=== PATIENT | female | born 1975 | race Caucasian/White ===

== ENCOUNTER 2024-01-21 22:09 | Observation (INO) ==
[2024-01-21 22:30] LABS: BILIRUBIN,URINE NEGATIVE (NEGATIVE); BLOOD/HEMOGLOBIN,URINE NEGATIVE (NEGATIVE); GLUCOSE, URINE NEGATIVE (NEGATIVE); KETONES,URINE 2+ (NEGATIVE); LEUKOCYTE ESTERASE ,URINE NEGATIVE (NEGATIVE); NITRITES,URINE NEGATIVE (NEGATIVE); PROTEIN,URINE NEGATIVE (NEGATIVE); UROBILINOGEN,URINE NORMAL (NORMAL)
[2024-01-21 22:33] LABS: APPEARANCE,URINE CLEAR (CLEAR); COLOR,URINE STRAW (YELLOW)
--- NOTE | 2024-01-21 22:34 | ED.ABDFE ---
HPI Time Seen Time Seen by Provider: 01/21/24 22:32 PCP Primary Care Physician: Carlito Posadas Complaint Doctors Chief Complaint Comments: Patient states that for 1 week she has been having pain in her Rlq that is aching. Patient presents to the ED today because the pain became severe over the past 2 days and she could not eat as she normally does because of the pain. Patient states that she passes flatus and has soft stools.Patient denies:fever,n,v,back pain,hematemesis,hematochezia. Chief Complaint:: pt amb to triage with c/o RLQ pain that started 1 week ago and becoming severe the last 2 days, she reports she has an appt scheduled with her PCP tomorrow, pt denies any urinary c/o and reports she having regular BMs, pt with NAD noted at triage Self Treatment fo Chief Complaint: none COVID-19 Coronavirus risk:travel/contact w/high risk person: No Has patient experienced Coronavirus symptoms: No Source History Provided: Patient and Family Member Mode of arrival Mode of Arrival: Ambulatory Timing Onset of Chief Complaint: 01/14/24 PMH PMH Past Medical History: Yes Past Medical History: Anxiety, Depression and Hypothyroidism Past Medical History Comment: Carolyne'segundo Past Surgical History: Yes Surgical History: FINANCE MGR Surgery, Hysterectomy, Ortho Surgery, Thyroidectomy and Other Past Surgical History Comment: tubal, 1/2 thyroid removed Family History History of Family Medical Conditions: Yes Family Medical History: Cancer, [place], Coronary Artery Disease and Hypertension Social History Does patient currently use any type of tobacco product: Yes Have you used tobacco products in the last 12 months: Yes Type of Tobacco Use: Vape Does any household member use tobacco: Yes Alcohol Use: Occasionally Do you use any recreational Drugs:: No Lives With: Family Lives Where: Home Travel Risk Coronavirus risk:travel/contact w/high risk person: No Has patient experienced Coronavirus symptoms: No Infectious screening Have you traveled outside the country in the last 6 months?: No Isolation: Standard ROS Review of Systems Constitutional: No Symptoms Reported Eyes: No Symptoms Reported ENTM: No Symptoms Reported Respiratoy: No Symptoms Reported Cardiovascular: No Symptoms Reported Gastrointestinal/Abdominal: Abdominal Pain (RLQ) and Food Intolerance (x 2 days) Genitourinary: No Symptoms Reported Neurological: No Symptoms Reported Musculoskeletal: No Symptoms Reported Integumentary: No Symptoms Reported Hematologic/Lymphatic: No Symptoms Reported Endocrine: No Symptoms Reported Psychiatric: No Symptoms Reported All Other Systems: Reviewed and Negative PE Vital Signs Vitals: Vital Signs Temperature 97.7 F Pulse Rate [Left] 86 Pulse Rate 94 Pulse Rate 86 Pulse Rate 90 Pulse Rate 85 Pulse Rate 88 Pulse Rate 100 Respiratory Rate 20 Respiratory Rate 18 Respiratory Rate 16 Respiratory Rate 18 Respiratory Rate 20 Blood Pressure [Left Arm] 134/76 Blood Pressure 162/99 Blood Pressure 138/94 Blood Pressure 135/92 O2 Sat by Pulse Oximetry 98 O2 Sat by Pulse Oximetry 99 O2 Sat by Pulse Oximetry 99 O2 Sat by Pulse Oximetry 98 O2 Sat by Pulse Oximetry 97 O2 Sat by Pulse Oximetry 98 O2 Sat by Pulse Oximetry 97 General Limitations: No Limitations and Language Barrier General Appearance: Alert and In No Apparent Distress Head Head Exam: Normal Inspection Eyes Eye exam: Normal Appearance ENT ENT Exam: Normal Exam Neck Neck Exam: Normal Inspection Chest Chest Inspection: Normal Inspection Respiratory Respiratory Exam: Normal Lung Sounds Bilat Respiratory Exam: Bilateral: Clear to Auscultation Cardiovascular Cardiovascular Exam: Regular Rate and Normal Rhythm Abdominal Exam Abdominal Exam: Tenderness (RLQ), Guarding (RLQ), Rebound (RLQ) and Hypoactive Bowel Sounds; negative Distention Rectal Rectal Exam: Deferred Back Back Exam: Normal Inspection Extremeties Extremities Exam: Normal Inspection Neurologic Neurological Exam: Alert and Oriented X3 Psychiatric Psychiatric Exam: Normal Affect and Normal Mood Skin Skin Exam: Warm, Dry and Intact MDM Differential Diagnosis Differential Diagnosis- Considerations may include:: Appendicitis, Bowel Obstruction, Diverticular disease and Ischemic Bowel Other differential diagnosis: Bowel perforation COURSE Treatment Treatment: Patient was brought to an exam room and iv access was initiated.Labs were drawn and patient was given Morphine 2mg iv and zofran 4mg iv, pepcid 20mg iv. Labs and tests were reviewed: U/a pos ketones,CMP stable,CRP 7.80,Latic acid 0.6,wbc 6.7. The abd/pelvis CT with iv contrast revealed a 7mm appendix with small amt of fluid in the lumen and periappendiceal stranding c/w an early appendicitis.Patient was given NS 1 liter bolus and she requested medication for pain. Patient was given dialudid 1mg iv. Discussed case with Dr Willams (General Surgeon) mortgage loan computation clerk. He has accepted Patient to his service and would like her to be NPO,given iv antibiotics ,given IVF. ROR Labs Reviewed Laboratory Results Reviewed?: Yes 01/21/24 23:05 01/21/24 23:05 Laboratory: WBC 6.7 X10^3/uL (3.6-10.0) 01/21/24 23:05 RBC 4.47 X10^6/uL (3.5-5.4) 01/21/24 23:05 Hgb 13.8 g/dL (12.0-16.0) 01/21/24 23:05 Hct 40.3 % (36.0-47.0) 01/21/24 23:05 MCV 90.0 fL (80.0-100.0) 01/21/24 23:05 MCH 30.8 pg (27.0-34.0) 01/21/24 23:05 MCHC 34.2 g/dL (33.0-35.0) 01/21/24 23:05 RDW 13.2 % (11.6-16.5) 01/21/24 23:05 Plt Count 296 X10^3/uL (150.0-450.0) 01/21/24 23:05 MPV 8.7 fL (7.4-11.0) 01/21/24 23:05 Neut % (Auto) 63.8 % (42.0-75.0) 01/21/24 23:05 Lymph % (Auto) 26.3 % (21.0-51.0) 01/21/24 23:05 [place] % (Auto) 7.3 % (0.0-13.0) 01/21/24 23:05 Eos % (Auto) 2.0 % (0.9-2.9) 01/21/24 23:05 Baso % (Auto) 0.6 % (0.2-1.0) 01/21/24 23:05 Neut # (Auto) 4.3 x10^3/uL (2.2-4.8) 01/21/24 23:05 Lymph # (Auto) 1.8 X10^3/uL (1.3-2.9) 01/21/24 23:05 [place] # (Auto) 0.5 x10^3/uL (0.3-0.8) 01/21/24 23:05 Eos # (Auto) 0.1 x10^3/uL (0.0-0.2) 01/21/24 23:05 Baso # (Auto) 0.0 X10^3/uL (0.0-0.1) 01/21/24 23:05 Absolute Nucleated RBC 0.1 /100WBC 01/21/24 23:05 Sodium 142 mmol/L (136-145) 01/21/24 23:05 Corrected Sodium TNP 01/21/24 23:05 Potassium 3.8 mmol/L (3.5-5.1) 01/21/24 23:05 Chloride 104 mmol/L (98-107) 01/21/24 23:05 Carbon Dioxide 27.0 mmol/L (21-32) 01/21/24 23:05 BUN 12 mg/dL (7-18) 01/21/24 23:05 Creatinine 0.79 mg/dL (0.55-1.02) 01/21/24 23:05 Est GFR (MDRD) Af Amer > 60 (>60) 01/21/24 23:05 Est GFR (MDRD) Non-Af > 60 (>60) 01/21/24 23:05 Glucose 75 mg/dL (65-99) 01/21/24 23:05 Lactic Acid 0.6 mmol/L (0.4-2.0) 01/21/24 23:05 Calcium 9.1 mg/dL (8.5-10.1) 01/21/24 23:05 Corrected Calcium TNP 01/21/24 23:05 Total Bilirubin 0.40 mg/dL (0.2-1.0) 01/21/24 23:05 AST 16 Units/L (15-37) 01/21/24 23:05 ALT 19 Units/L (12-78) 01/21/24 23:05 Alkaline Phosphatase 123 Units/L (46-116) H 01/21/24 23:05 C-Reactive Protein 7.80 mg/L (0-3.0) H 01/21/24 23:05 Total Protein 7.5 g/dL (6.4-8.2) 01/21/24 23:05 Albumin 3.7 g/dL (3.4-5.0) 01/21/24 23:05 Globulin 3.8 g/dL (2.5-4.5) 01/21/24 23:05 Albumin/Globulin Ratio 1.0 Ratio (1.1-2.1) L 01/21/24 23:05 Amylase 40 Units/L (25-115) 01/21/24 23:05 Lipase 28 Units/L (16-77) 01/21/24 23:05 Specimen Type Clean catch urine 01/21/24 22:23 Urine Color Straw (YELLOW) 01/21/24 22:23 Urine Appearance Clear (CLEAR) 01/21/24 22:23 Urine pH 6.0 (5.0 - 8.0) 01/21/24 22:23 Ur Specific [place] 1.010 (1.000-1.030) 01/21/24 22:23 Urine Protein Negative (NEGATIVE) 01/21/24 22:23 Urine Glucose (UA) Negative (NEGATIVE) 01/21/24 22:23 Urine Ketones 2+ (NEGATIVE) 01/21/24 22:23 Urine Blood Negative (NEGATIVE) 01/21/24 22:23 Urine Nitrite Negative (NEGATIVE) 01/21/24 22:23 Urine Bilirubin Negative (NEGATIVE) 01/21/24 22:23 Urine Urobilinogen Normal (NORMAL) 01/21/24 22:23 Ur Leukocyte Esterase Negative (NEGATIVE) 01/21/24 22:23 XRAY XRAY Interpreted by: Radiologist X-ray Results: PROCEDURE: CT Abdomen and Pelvis with IV Contrast. HISTORY: Right lower quadrant pain. TECHNIQUE: Axial images were performed through the abdomen and pelvis with the administration of IV contrast with multiplanar reformations . Oral contrast was notadministered . Dose reduction techniques including Automated Exposure Control (AEC) and adjustment of mA and kV were utilized .. COMPARISON: None. TECHNICAL QUALITY: Satisfactory. FINDINGS: Clear lung bases. Liver, spleen, adrenals, and pancreas show no abnormality. Kidneys show no masses or obstruction with normal enhancement. Normal biliary tract. No ascites or pneumoperitoneum. Normal aorta. No lymphadenopathy. No bowel obstruction or inflammation. Mild colonic diverticulosis. 7 mm diameter appendix with small amount of fluid in the lumen and minimal periappendiceal stranding equivocal for early appendicitis. Pelvis shows no masses or free fluid with previous hysterectomy. Normal urinary bladder. No acute bony abnormality. IMPRESSION: 1. Findings equivocal for early appendicitis. 2. Mild colonic diverticulosis. THIS IS AN ELECTRONICALLY VERIFIED FINAL REPORT 01/22/2024 12:19 AM - Electronically signed by Frank Bhatt MD Opioid Opioid Risk Tool Age (Darryl box if 16-45): No Total: 0 Total Score Risk Category: Low Risk Copyright: Damon RASMUSSEN predicting aberrant behaviors Discharge Plan Diagnosis Discharge Problem: Acute appendicitis Discharge Plan Patient Disposition: ADMITTED INPATIENT Condition: Stable Orders to Discharge Patient Discharge Orders: Transfer (Routine); Ordered 01/22/24 Ordered By: Sylvie Montes De Oca
[2024-01-21] MEDS ORDERED: ZOFRAN INJ 4 MG VIAL ONE (22:51)
[2024-01-21] MEDS: MORPHINE SULFATE INJ 2 MG INJ IVP ONE (22:54)
[2024-01-21] MEDS: NS 1,000 ML IV 1,000 ML IV ONE (22:54)
[2024-01-21] MEDS: PEPCID 20 MG VIAL IVP ONE (22:55)
[2024-01-21] MEDS: ZOFRAN INJ 4 MG VIAL IVP ONE (22:55)
[2024-01-21 23:17] LABS: HEMOGLOBIN 13.8 g/dL (12.0-16.0); RED CELL DISTRIBUTION WIDTH 13.2 % (11.6-16.5)
[2024-01-21 23:21] LABS: BASOPHILS % (AUTO) 0.6 % (0.2-1.0); EOSINOPHILS # (AUTO) 0.1 x10^3/uL (0.0-0.2); HEMATOCRIT 40.3 % (36.0-47.0); LYMPHOCYTES # (AUTO) 1.8 X10^3/uL (1.3-2.9); LYMPHOCYTES % (AUTO) 26.3 % (21.0-51.0); MEAN CORPUSCULAR HEMOGLOBIN 30.8 pg (27.0-34.0); MEAN CORPUSCULAR HGB CONC 34.2 g/dL (33.0-35.0); MEAN PLATELET VOLUME 8.7 fL (7.4-11.0); MONOCYTES # (AUTO) 0.5 x10^3/uL (0.3-0.8); MONOCYTES % (AUTO) 7.3 % (0.0-13.0); NEUTROPHILS # (AUTO) 4.3 x10^3/uL (2.2-4.8); NEUTROPHILS % (AUTO) 63.8 % (42.0-75.0); PLATELET COUNT 296 X10^3/uL (150.0-450.0); RED BLOOD COUNT 4.47 X10^6/uL (3.5-5.4); WHITE BLOOD COUNT 6.7 X10^3/uL (3.6-10.0)
[2024-01-21 23:26] LABS: ALANINE AMINOTRANSFERASE 19 Units/L (12-78); ALBUMIN 3.7 g/dL (3.4-5.0); ALKALINE PHOSPHATASE 123 Units/L (46-116); AMYLASE 40 Units/L (25-115); ASPARTATE AMINO TRANSFERASE 16 Units/L (15-37); BLOOD UREA NITROGEN 12 mg/dL (7-18); CALCIUM 9.1 mg/dL (8.5-10.1); CHLORIDE 104 mmol/L (98-107); CREATININE 0.79 mg/dL (0.55-1.02); GLUCOSE 75 mg/dL (65-99); LIPASE 28 Units/L (16-77); POTASSIUM 3.8 mmol/L (3.5-5.1); SODIUM 142 mmol/L (136-145); TOTAL PROTEIN 7.5 g/dL (6.4-8.2); eGFR NON BLACK RACES > 60 (>60)
[2024-01-21] MEDS: TORADOL 30 MG VIAL IVP ONE (23:43)
[2024-01-22] MEDS: DILAUDID INJ IVP ONE ×2 (00:22→01:50)
--- NOTE | 2024-01-22 00:23 | CT ---
PROCEDURE: CT Abdomen and Pelvis with IV Contrast.HISTORY: Right lower quadrant pain.TECHNIQUE: Axial images were performed through the abdomen and pelvis with the administration of IV contrast with multiplanar reformations . Oral contrast was notadministered . Dose reduction techniques including Automated Exposure Control (AEC) and adjustment of mA and kV were utilized ..COMPARISON: None.TECHNICAL QUALITY: Satisfactory.FINDINGS:Clear lung bases.Liver, spleen, adrenals, and pancreas show no abnormality.Kidneys show no masses or obstruction with normal enhancement.Normal biliary tract.No ascites or pneumoperitoneum.Normal aorta.No lymphadenopathy.No bowel obstruction or inflammation. Mild colonic diverticulosis. 7 mm diameter appendix with small amount of fluid in the lumen and minimal periappendiceal stranding equivocal for early appendicitis.Pelvis shows no masses or free fluid with previous hysterectomy. Normal urinary bladder.No acute bony abnormality.IMPRESSION:1. Findings equivocal for early appendicitis.2. Mild colonic diverticulosis.THIS IS AN ELECTRONICALLY VERIFIED FINAL REPORT01/22/2024 12:19 AM - Electronically signed by Frank Bhatt MD
[2024-01-22] MEDS: MAXIPIME VIAL 2 GRAMS 2 G in NS 100 ML IV 100 ML IV SCH (01:18)
[2024-01-22] MEDS: NS 1,000 ML IV 1,000 ML IV SCH (01:20)
[2024-01-22] MEDS: ZOFRAN INJ 4 MG VIAL IVP PRN (02:56)
[2024-01-22 03:16] VITALS: BMI 36.3
[2024-01-22] MEDS: FLAGYL IV PREMIX 500 MG BAG 500 MG/100 ML BAG IV SCH ×2 (03:35→22:55)
[2024-01-22] MEDS: ZOFRAN INJ 4 MG VIAL IVP ONE (07:39)
[2024-01-22] MEDS: NS 100 ML IV 100 ML ONE ×3 (07:45→08:29)
[2024-01-22] MEDS: MORPHINE SULFATE INJ 2 MG INJ ONE (07:46)
[2024-01-22] MEDS: NS 1,000 ML IV 1,000 ML ONE ×2 (07:46→07:49)
[2024-01-22] MEDS: TORADOL 30 MG VIAL ONE ×2 (07:47→09:31)
[2024-01-22] MEDS: PEPCID 20 MG VIAL ONE ×2 (07:47→08:46)
[2024-01-22] MEDS: OMNIPAQUE 350 mg/mL 100 mL BTL 100 ML ONE (07:47)
[2024-01-22] MEDS: MAXIPIME VIAL 1 GRAM ONE (07:48)
[2024-01-22] MEDS: DILAUDID INJ ONE ×2 (07:48→07:49)
[2024-01-22] MEDS: LR 1,000 ML IV 1,000 ML IV SCH (08:16)
[2024-01-22] MEDS: LR 1,000 ML IV 1,000 ML IV ONE (08:29)
[2024-01-22] MEDS: VERSED ONE (08:45)
[2024-01-22] MEDS: ANCEF VIAL 1 GRAM ONE (08:45)
[2024-01-22] MEDS: FENTANYL VIAL INJ 250 mcg ONE (08:45)
[2024-01-22] MEDS: BRIDION ONE (08:46)
[2024-01-22] MEDS: ZEMURON 100 MG VIAL ONE (08:46)
[2024-01-22] MEDS: REGLAN INJ 10 MG VIAL ONE (08:46)
[2024-01-22] MEDS: DIPRIVAN VIAL 20 ML ONE (08:46)
[2024-01-22] MEDS ORDERED: SUPRANE ONE (08:48)
[2024-01-22] MEDS: DECADRON INJ ONE (09:07)
[2024-01-22] MEDS: BACTROBAN TOPICAL OINT ONE (09:32)
[2024-01-22] MEDS ORDERED: BENADRYL INJ 50 MG VIAL IVP PRN (09:52)
[2024-01-22] MEDS ORDERED: BARHEMSYS INJ IVP PRN (09:52)
[2024-01-22] MEDS ORDERED: DILAUDID INJ IVP PRN (09:52)
[2024-01-22] MEDS ORDERED: REGLAN INJ 10 MG VIAL IVP PRN (09:52)
[2024-01-22] MEDS ORDERED: ZOFRAN INJ 4 MG VIAL IVP PRN (09:52)
[2024-01-22] MEDS: TORADOL 15 MG VIAL IVP PRN (12:35)
[2024-01-22] MEDS ORDERED: NS IRRIGATION* 1,000 ML ONE (14:19)
[2024-01-22] MEDS: NORCO 5/325 MG TAB PO PRN (14:25)
[2024-01-23 07:20] LABS: BASOPHILS % (AUTO) 0.5 % (0.2-1.0); EOSINOPHILS % (AUTO) 0.3 % (0.9-2.9); HEMATOCRIT 33.3 % (36.0-47.0); HEMOGLOBIN 11.5 g/dL (12.0-16.0); LYMPHOCYTES # (AUTO) 1.8 X10^3/uL (1.3-2.9); LYMPHOCYTES % (AUTO) 24.7 % (21.0-51.0); MEAN CORPUSCULAR HEMOGLOBIN 31.4 pg (27.0-34.0); MEAN CORPUSCULAR HGB CONC 34.4 g/dL (33.0-35.0); MEAN CORPUSCULAR VOLUME 91.1 fL (80.0-100.0); MEAN PLATELET VOLUME 9.1 fL (7.4-11.0); MONOCYTES # (AUTO) 0.5 x10^3/uL (0.3-0.8); MONOCYTES % (AUTO) 6.4 % (0.0-13.0); NEUTROPHILS # (AUTO) 5.1 x10^3/uL (2.2-4.8); NEUTROPHILS % (AUTO) 68.1 % (42.0-75.0); PLATELET COUNT 249 X10^3/uL (150.0-450.0); RED BLOOD COUNT 3.65 X10^6/uL (3.5-5.4); WHITE BLOOD COUNT 7.5 X10^3/uL (3.6-10.0)
[2024-01-23 07:33] LABS: ALANINE AMINOTRANSFERASE 13 Units/L (12-78); ALBUMIN 2.9 g/dL (3.4-5.0); ALKALINE PHOSPHATASE 97 Units/L (46-116); ASPARTATE AMINO TRANSFERASE 13 Units/L (15-37); BLOOD UREA NITROGEN 8 mg/dL (7-18); CALCIUM 8.3 mg/dL (8.5-10.1); CARBON DIOXIDE 25.9 mmol/L (21-32); CHLORIDE 108 mmol/L (98-107); COR CA(FOR HYPOALB) 9.2 mg/dL (8.5-10.1); CREATININE 0.63 mg/dL (0.55-1.02); GLUCOSE 78 mg/dL (65-99); POTASSIUM 3.9 mmol/L (3.5-5.1); SODIUM 143 mmol/L (136-145); eGFR NON BLACK RACES > 60 (>60)
[2024-01-23] MEDS: DILAUDID INJ IVP PRN (08:21)
[2024-01-23 08:37] VITALS: TEMP 98.1; O2SAT 97
[2024-01-23] MEDS ORDERED: CONSULT PHARMACY - POTASSIUM & MAGNESIUM XX SCH (09:00)
[2024-01-23] MEDS ORDERED: LR 1,000 ML IV 1,000 ML with MAGNESIUM SULFATE 50% INJ VIAL 1 G IV SCH (09:00)
--- NOTE | 2024-01-23 10:01 | DR.PROGNOT ---
HOSPITAL PROGRESS NOTE Progress Note for Day of: Progress Note Date: 01/23/24 Chief Complaint Chief Complaint: Status post laparoscopic appendectomy day 1. Complain of moderate abdominal pain right lower quadrant. Tolerating oral intake, no nausea or vomiting, no bowel movement yet. CBC and CMP are normal. Patient is afebrile. Past Medical Family Social History Allergies: Allergies amoxicillin [From Augmentin] Allergy (Verified 01/21/24 22:31) clavulanic acid [From Augmentin] Allergy (Verified 01/21/24 22:31) Review Of Systems ROS: No change since H&P Vital Signs Vital Signs: Vital Signs Temperature 98.1 F Temperature 97.8 F Pulse Rate [Left] 79 Pulse Rate [Left] 82 Respiratory Rate 18 Respiratory Rate 20 Respiratory Rate 20 Respiratory Rate 18 Respiratory Rate 20 Respiratory Rate 20 Respiratory Rate 19 Respiratory Rate 20 Blood Pressure [Left Arm] 129/86 Blood Pressure [Left Arm] 127/78 O2 Sat by Pulse Oximetry 97 O2 Sat by Pulse Oximetry 96 Physical Exam Oriented: Normal Eyes: Normal Ear: Normal Nose: Normal Throat: Normal Respiratory: Normal Cardiovascular: Normal GI:Auscultation: Normal GI: Tenderness: Other (Soft and flat abdomen with moderate right lower quadrant tenderness, bowel sounds present) Speech Pattern: Clear and Appropriate Laboratory and Diagnostics 01/23/24 05:22 01/23/24 05:22 Labs: Laboratory WBC 7.5 X10^3/uL (3.6-10.0) 01/23/24 05:22 RBC 3.65 X10^6/uL (3.5-5.4) 01/23/24 05:22 Hgb 11.5 g/dL (12.0-16.0) L D 01/23/24 05:22 Hct 33.3 % (36.0-47.0) L 01/23/24 05:22 MCV 91.1 fL (80.0-100.0) 01/23/24 05:22 MCH 31.4 pg (27.0-34.0) 01/23/24 05:22 MCHC 34.4 g/dL (33.0-35.0) 01/23/24 05:22 RDW 13.0 % (11.6-16.5) 01/23/24 05:22 Plt Count 249 X10^3/uL (150.0-450.0) 01/23/24 05:22 MPV 9.1 fL (7.4-11.0) 01/23/24 05:22 Neut % (Auto) 68.1 % (42.0-75.0) 01/23/24 05:22 Lymph % (Auto) 24.7 % (21.0-51.0) 01/23/24 05:22 [place] % (Auto) 6.4 % (0.0-13.0) 01/23/24 05:22 Eos % (Auto) 0.3 % (0.9-2.9) L 01/23/24 05:22 Baso % (Auto) 0.5 % (0.2-1.0) 01/23/24 05:22 Neut # (Auto) 5.1 x10^3/uL (2.2-4.8) H 01/23/24 05:22 Lymph # (Auto) 1.8 X10^3/uL (1.3-2.9) 01/23/24 05:22 [place] # (Auto) 0.5 x10^3/uL (0.3-0.8) 01/23/24 05:22 Eos # (Auto) 0.0 x10^3/uL (0.0-0.2) 01/23/24 05:22 Baso # (Auto) 0.0 X10^3/uL (0.0-0.1) 01/23/24 05:22 Absolute Nucleated RBC 0.0 /100WBC 01/23/24 05:22 Sodium 143 mmol/L (136-145) 01/23/24 05:22 Corrected Sodium TNP 01/23/24 05:22 Potassium 3.9 mmol/L (3.5-5.1) 01/23/24 05:22 Chloride 108 mmol/L (98-107) H 01/23/24 05:22 Carbon Dioxide 25.9 mmol/L (21-32) 01/23/24 05:22 BUN 8 mg/dL (7-18) 01/23/24 05:22 Creatinine 0.63 mg/dL (0.55-1.02) 01/23/24 05:22 Est GFR (MDRD) Af Amer > 60 (>60) 01/23/24 05:22 Est GFR (MDRD) Non-Af > 60 (>60) 01/23/24 05:22 Glucose 78 mg/dL (65-99) 01/23/24 05:22 Lactic Acid 0.6 mmol/L (0.4-2.0) 01/21/24 23:05 Calcium 8.3 mg/dL (8.5-10.1) L 01/23/24 05:22 Corrected Calcium 9.2 mg/dL (8.5-10.1) 01/23/24 05:22 Magnesium 1.8 mg/dL (2.0-2.9) L 01/23/24 05:22 Total Bilirubin 0.40 mg/dL (0.2-1.0) 01/23/24 05:22 AST 13 Units/L (15-37) L 01/23/24 05:22 ALT 13 Units/L (12-78) 01/23/24 05:22 Alkaline Phosphatase 97 Units/L (46-116) 01/23/24 05:22 C-Reactive Protein 7.80 mg/L (0-3.0) H 01/21/24 23:05 Total Protein 6.0 g/dL (6.4-8.2) L 01/23/24 05:22 Albumin 2.9 g/dL (3.4-5.0) L 01/23/24 05:22 Globulin 3.1 g/dL (2.5-4.5) 01/23/24 05:22 Albumin/Globulin Ratio 0.9 Ratio (1.1-2.1) L 01/23/24 05:22 Amylase 40 Units/L (25-115) 01/21/24 23:05 Lipase 28 Units/L (16-77) 01/21/24 23:05 Specimen Type Clean catch urine 01/21/24 22:23 Urine Color Straw (YELLOW) 01/21/24 22:23 Urine Appearance Clear (CLEAR) 01/21/24 22:23 Urine pH 6.0 (5.0 - 8.0) 01/21/24 22:23 Ur Specific [place] 1.010 (1.000-1.030) 01/21/24 22:23 Urine Protein Negative (NEGATIVE) 01/21/24 22:23 Urine Glucose (UA) Negative (NEGATIVE) 01/21/24 22:23 Urine Ketones 2+ (NEGATIVE) 01/21/24 22:23 Urine Blood Negative (NEGATIVE) 01/21/24 22:23 Urine Nitrite Negative (NEGATIVE) 01/21/24 22:23 Urine Bilirubin Negative (NEGATIVE) 01/21/24 22:23 Urine Urobilinogen Normal (NORMAL) 01/21/24 22:23 Ur Leukocyte Esterase Negative (NEGATIVE) 01/21/24 22:23 Assessment and Plan 1: Postoperative laparoscopic appendectomy for acute appendicitis. Patient could be discharged on Cipro 500 mg twice a day for 1 week. [place] 5 every 4 hours as needed. Regular diet small meals. Follow-up in 10 days. Patient is instructed to rest at home until seen in the office in 10 days. Problem Patient Problems: Patient Problems Acute appendicitis (Acute) K35.80
[2024-01-23 12:05] VITALS: BP 122/83; PULSE 87; RESP 19
== END 2024-01-23 12:35 | disposition home or self-care (01) ==
LOC: ER 22:09 → MED/SURG 22:09
PROVIDERS: ADMIT Surgery; ATTEND Obstetrics & Gynecology Obstetrics
PROC: APPYLAP (ICD-10-PCS; 2024-01-22 09:00)
DX: R10.31 Right lower quadrant pain; K35.30 Acute appendicitis with localized peritonitis, without perforation or gangrene; R79.82 Elevated C-reactive protein (CRP); K57.30 Diverticulosis of large intestine without perforation or abscess without bleeding; E03.8 Other specified hypothyroidism; E83.42 Hypomagnesemia; R11.2 Nausea with vomiting, unspecified; F41.8 Other specified anxiety disorders